=== PATIENT | female | born 1980 | race Caucasian/White ===

== ENCOUNTER 2020-03-08 16:02 | Emergency (ER) | payer BC ==
[~2020-03-08] VITALS: Ht 165.1 cm; Wt 54.4 kg
[~2020-03-08 16:02] MED LIST: ATIVAN1 MG; CITRATE OF MAG296 ML PO; CLONIDINE HCL0.3 M3; LAMICTAL100 MG; PRENATAL; SEROQUEL 25 MG25 M1; ZANTAC 150MG T150 MG PO; ZOFRAN ODT4 MG PO; ZOFRAN4 MG PO
[2020-03-08 16:08] VITALS: BP 148/74
[2020-03-08] MEDS ORDERED: LISINOPRIL-HCT1 EACH PO (16:14)
[2020-03-08 16:28] LABS: URINE BILIRUBIN NEGATIVE (Negative); URINE BLOOD NEGATIVE (Negative); URINE CLARITY CLEAR; URINE COLOR YELLOW; URINE GLUCOSE-RANDOM* NEGATIVE (Negative); URINE KETONES NEGATIVE (Negative); URINE LEUKOCYTES-REFLEX TRACE (Negative); URINE NITRITE-REFLEX NEGATIVE (Negative); URINE PROTEIN (DIPSTICK) NEGATIVE (Negative); URINE UROBILINOGEN 0.2 E.U./dl (0.2-1.0)
[2020-03-08] MEDS ORDERED: KEFLEX500 M1 PO (16:37)
== END 2020-03-08 16:45 | disposition home or self-care (01) ==
LOC: ER 16:02
PROVIDERS: Nurse Practitioner
DX: R30.0 Dysuria (principal); F17.210 Nicotine dependence, cigarettes, uncomplicated; J45.909 Unspecified asthma, uncomplicated; Z90.89 Acquired absence of other organs; Z79.899 Other long term (current) drug therapy